=== PATIENT | female | born 1955 | race Asian ===

== ENCOUNTER 2019-04-18 09:29 | Emergency (ER) | payer OTHER ==
[~2019-04-18] VITALS: Ht 152.4 cm; Wt 72.6 kg
[2019-04-18 09:42] VITALS: Ht 152.4 cm; Wt 72.6 kg
--- NOTE | 2019-04-18 09:53 | ERD ---
ER Documentation Chief Complaint Chief Complaint SOB AND DIFFICULTY SLEEPING LAST NIGHT HPI 64-year-old female presents the emergency department complaining of chest pain and shortness of breath. She states that beginning last night, she had the above symptoms and a feeling of "anxiety." She states that she had difficulty sleeping. She had a nonspecific left-sided chest discomfort that did not radiate. It was associated with a sensation of shortness of breath and anxiety. She reported no fevers, chills, cough, hemoptysis. She reported no cough or sputum production. She currently reports that those symptoms are now resolved. ROS All systems reviewed and are negative except as per history of present illness. PMhx/Soc Hx Cardiac Disorders: Yes (htn) FmHx Noncontributory for chief complaint Physical Exam Vitals Vital Signs Date Temp Pulse Resp B/P (MAP) Pulse Ox O2 O2 Flow FiO2 Time Delivery Rate 04/18/19 93 20 144/69 100 Nasal 10:11 (94) Cannula 04/18/19 Nasal 3 09:50 Cannula 04/18/19 99.0 100 16 145/77 95 09:42 (99) Physical Exam GENERAL: The patient is well developed and appropriate for usual state of health in no apparent distress HEENT: Pupils equal, round, and reactive to light. EOMI. There is no scleral icterus. NECK: C-spine is soft and supple, there is no meningismus. There is no cervical lymphadenopathy. LUNGS: Clear to auscultation bilaterally. There are no rales, wheezes or rhonchi. HEART: Regular rate and rhythm, no murmurs, clicks, rubs or gallops. ABDOMEN: Soft, non-tender, non-distended. There are bowel sounds in all four quadrants. No rebound or guarding. EXTREMITIES: There is no peripheral cyanosis or edema. No focal swelling or erythema. NEURO: The patient moves all four extremities with 5/5 strength. Cranial nerves II - XII are intact. Normal gait. Alert and oriented SKIN: There is no apparent rash or petechiae. HEME/LYMPHATIC: There is no evidence of excessive bruising or lymphedema. PSYCHIATRIC: The patient does not appear anxious or depressed. Result Diagram: 1957 1957 Results 24 hrs Laboratory Tests Test 04/18/19 09:57 White Blood Count 8.8 10^3/ul Red Blood Count 5.01 10^6/ul Hemoglobin 14.1 g/dl Hematocrit 39.2 % Mean Corpuscular Volume 78.2 fl Mean Corpuscular Hemoglobin 28.1 pg Mean Corpuscular Hemoglobin Concent 36.0 g/dl Red Cell Distribution Width 14.8 % Platelet Count 337 10^3/UL Mean Platelet Volume 9.6 fl Immature Granulocytes % 0.300 % Neutrophils % 72.1 % Lymphocytes % 18.4 % Monocytes % 6.8 % Eosinophils % 1.8 % Basophils % 0.6 % Nucleated Red Blood Cells % 0.0 /100WBC Immature Granulocytes # 0.030 10^3/ul Neutrophils # 6.4 10^3/ul Lymphocytes # 1.6 10^3/ul Monocytes # 0.6 10^3/ul Eosinophils # 0.2 10^3/ul Basophils # 0.1 10^3/ul Nucleated Red Blood Cells # 0.0 10^3/ul Sodium Level 141 mmol/L Potassium Level 3.8 mmol/L Chloride Level 102 mmol/L Carbon Dioxide Level 27 mmol/L Anion Gap 12 Blood Urea Nitrogen 16 mg/dl Creatinine 0.76 mg/dl Est Glomerular Filtrat Rate mL/min > 60 mL/min Glucose Level 148 mg/dl Calcium Level 9.7 mg/dl Troponin I < 0.012 ng/ml Procedures/MDM Patient was taken to a room, seen and evaluated. Comfort measures were initiated. Diagnostic tests were ordered and reviewed. 3 LEAD RHYTHM STRIP: Normal sinus rhythm without ectopy EK lead EKG reviewed by myself: Normal Sinus Rhythm Normal [place] and intervals No ST elevation, depression, or T wave inversion Impression: Normal EKG EKG was repeated in the emergency department and interpreted by myself: Normal Sinus Rhythm Normal [place] and intervals No ST elevation, depression, or T wave inversion Impression: Normal EKG RADIOLOGY: Reviewed with the radiologist REEVALUATION: 1130: Diagnostic tests were appreciated and discussed with the patient. She was offered inpatient observation which she declined. She seemed appropriate for discharge at the time she was chest pain and symptom-free. MED[employer] DECISION MAKIN-year-old female with hypertension presents with nonspecific chest pain and anxiety. Diagnostic work-up focused on cardiac and pulmonary concerns. Patient's initial diagnostic work-up including 2 EKGs and her troponin is reassuring without evidence of obvious high risk cardiac disease. Her HEART score is low risk. Her PERC score is low risk as well. Patient appears appropriate for outpatient follow-up and has been educated on the need for outpatient stress testing. Departure Diagnosis: Primary Impression: Anxiety Additional Impression: Chest pain Condition: Good CHELSEA MADDOX Apr 18, 2019 09:52
[2019-04-18 11:41] VITALS: BP 127/68; PULSE 72; RESP 22
== END 2019-04-18 11:42 | disposition home or self-care (01) ==
LOC: E/R 09:29
DX: F41.9 Anxiety disorder, unspecified (principal); I10 Essential (primary) hypertension
CPT/HCPCS: 36415; 71045; 80048; 84484; 85025